=== PATIENT | female | born 1965 ===

== ENCOUNTER 2020-06-01 06:50 | Day surgery (SDC) | payer OTHER ==
[2020-06-01] MEDS ORDERED: TYLENOL325 M1 PO (11:20)
== END 2020-06-01 17:00 | disposition home or self-care (01) ==
LOC: CIR.AMB 06:50
PROVIDERS: ATTEND Obstetrics & Gynecology Gynecology
DX: N84.0 Polyp of corpus uteri (principal); Z20.828 Contact with and (suspected) exposure to other viral communicable diseases